=== PATIENT | female | born 1950 | race Caucasian/White ===

== ENCOUNTER 2016-06-18 05:14 | Emergency (ER) | payer OTHER ==
--- NOTE | 2016-06-18 07:09 | ED ORDER SUMMARY ---
..... Patient: MEAGAN SPICER OrderSheet [facility] VisitID: [id number] [place] [address] 65y, F Registration Date/Time: 06/18/2016 ORDER SHEET Weight: 62.5 kg (stated) Allergies: No Known Drug Allergy GENERAL ORDERS: Rapid Influenza Screen (Nasal Pharyngeal) (child care development specialist) Urgent (05:34 06/18/2016 Alf ROBLES) (Ack 5:37 CHagerty ER Circus Performer) (Cancelled: Other5:37 CHagerty ER Circus Performer) Chest 2V Urgent (05:38 06/18/2016 Alf ROBLES) (Ack 5:40 CHagerty ER Circus Performer) (5:54 Isma) Rapid Influenza Screen (Nasal Pharyngeal) (FLAKE DRIER) Urgent (05:38 06/18/2016 Alf ROBLES) (Ack 5:40 CHagerty ER Circus Performer) (6:04 JQuivey R.N.) CBC w Diff Urgent (05:39 06/18/2016 Alf ROBLES) (Ack 5:40 CHagerty ER Circus Performer) (6:04 JQuivey R.N.) CMP Urgent (05:39 06/18/2016 Alf ROBLES) (Ack 5:40 CHaganiket ER Circus Performer) (6:04 JQuivey R.N.) UA-Culture if indicated Urgent (05:39 06/18/2016 Alf ROBLES) (Ack 5:40 CHagerty ER Circus Performer) (6:18 JQuivey R.N.) Amylase Urgent (05:39 06/18/2016 Alf ROBLES) (Ack 5:40 CHagerty ER Circus Performer) (6:04 JQuivey R.N.) Lipase Urgent (05:39 06/18/2016 Alf ROBLES) (Ack 5:40 CHaganiket ER Circus Performer) (6:04 JQuivey R.N.) MEDICATION ORDERS: IV FLUIDS: IV NS : initial bolus 500 mL (1000 mL/hr), then 125 mL/hr for 4h (NOW); Urgent (05:38 06/18/2016 Alf ROBLES) (Ack 5:42 JQuivey R.N.) (6:04 JQuivey R.N.) ORDER SHEET NOTES: [Electronically signed by Lui Muniz R.N. (07:34 06/18/2016)] [Electronically signed by Greg López MD (17:51 06/21/2016)] [Electronically locked/signed by Lui Muniz R.N. (07:34 06/18/2016)]
--- NOTE | 2016-06-18 07:09 | ED NURSING NOTES ---
Clinical Report - Nurses [facility] [address] [place] [address] 06/18/2016 5:15 Patient: MEAGAN SPICER TRIAGE Triage time 05:24. Acuity: LEVEL 3. Chief Complaint: CHILLS, COUGH, NAUSEA and DIARRHEA. 05:34. Alert. SEPSIS SCREEN: Sepsis Screen. Negative (no infection suspected/documented). REINIER COMA SCORE: Reinier Coma Scale: 15- eyes open spontaneously (4); best verbal response- oriented x 4 (5); best motor response- obeys commands (6). --05:34 Lui Muniz R.N. 05:24 06/18/16. BP: 135/76. HR: 68. RR: 17. O2 saturation: 100%. Temp: 98.4 F (oral). Pain level now: 0/10. --05:34 Lui Muniz R.N. Weight: 62.5 kg stated. Height/Length: 65 inches Per Patient. BMI: 23. --05:30 Lui Muniz R.N. Medications Carvedilol Phosphate ER Oral, 2 x daily (pt unsure of dose ). --05:27 Lui Muniz R.N. Atorvastatin Calcium Oral (pt unsure of dose ). --05:28 Lui Muniz R.N. Antibiotic. --05:28 Lui Muniz R.N. Robitussin. --05:32 Lui Muniz R.N. Medication/allergy information source: the patient. --05:34 Lui Muniz R.N. Allergies No Known Drug Allergy. --05:29 Lui Muniz R.N. History Arrived by private vehicle, and accompanied by friend. Onset. (9 days ago). ( Patient reports being seen in both [place] and at the [facility], [place] for the same thing states she has 2 days left of taking the Anti-biotic, had a flu- swab done in [place] (neg) not getting any better). 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 PAST MEDICAL HX: Immunizations: up-to-date. The patient is post-menopausal. SOCIAL HX: Former smoker, end date 2007. Regular alcohol use; consumes two liquor daily. No drug use. No infectious disease exposure. ABUSE ASSESSMENT: No report of abuse. FALL RISK ASSESSMENT: Fall risk assessment completed. No fall risk identified. NUTRITIONAL RISK ASSESSMENT: The nutritional risk assessment revealed no deficiencies. FUNCTIONAL ASSESSMENT: Functional assessment: no impairments noted. LEARNING NEEDS ASSESSMENT: The learning needs assessment revealed no barriers. SKIN INTEGRITY ASSESSMENT: Skin integrity risk assessment completed. No skin integrity risk identified. --05:34 Lui Muniz R.N. PROBLEMS: Heart problem - patient can't remember name . --05:30 Lui Muniz R.N. ADDITIONAL SURGERIES: Cholecystectomy. Lung Surgery. --05:30 Lui Muniz R.N. Interventions ID band on patient. To treatment room. --05:34 Lui Muniz R.N. PHYSICAL ASSESSMENT 05:34. Ambulatory to room. Patient gowned. GENERAL / NEURO / PSYCH: Alert. Oriented X 4. HEENT: No facial asymmetry noted. Mucous membranes are pink. RESPIRATORY: Respirations not labored. SKIN: Skin intact. Skin is warm and dry. Normal skin turgor. --05:34 Lui Muniz R.N. NURSING PROGRESS NOTES 05:34. Head of bed elevated. Two patient identifiers checked. Call light placed in reach. Bed placed in lowest position. Brakes of bed on. Patient ready for evaluation- chart flagged. --05:34 Lui Muniz R.N. 05:46. Patient transported to radiology by wheelchair with tech. --05:46 Lui Muniz R.N. 05:51. Patient returned from radiology by wheelchair with tech. --05:51 Lui Muniz R.N. flu swab collected, labeled and sent to lab. pt tolerated well. --05:55 Heather Najera R.N. 05:55 06/18/2016 Site #1 started via IV in the right antecubital space with an 20g angiocath, with aseptic technique and good blood return; one attempt. Blood drawn: rainbow set. Labeled in the presence of the patient and sent to the lab. --06:03 Lui Muniz R.N. 05:58 06/18/2016 Started bag #1 1000 mL IV Fluids IV NS (Saline); at 1000 mL/hr over 30 minute(s) via site #1 via IV pump. IV patency established. IV site checked: no pain, redness, or swelling. IV flushed thoroughly pre- and post-medication administration. --06:04 Lui Muniz R.N. 06:07 Patient assisted to restroom to provide urine sample. --06:07 Lui Muniz R.N. 06:10. Patient ID band checked for patient name and birthdate: patient confirmed. Clean catch urine collected with return of yellow-colored garcia-colored clear urine; sample sent to lab for urinalysis. Specimen labeled in the presence of the patient. --06:10 Lui Muniz R.N. 07:32. The patient is calm and resting quietly. RESPIRATORY: No respiratory distress. SKIN: Skin is warm and dry. Skin color within normal limits. --07:34 Lui Muniz R.N. DISPOSITION / DISCHARGE 07:26 06/18/2016 IV Fluids IV NS Discontinued: bag #1 STOPPED upon discharge. Total amount infused: 600 mL. IV patency established. IV site checked: no pain, redness, or swelling. IV flushed thoroughly. --07:32 Lui Muniz R.N. 07:27 06/18/2016 Site #1 removed upon discharge. Catheter intact. Bandaid applied. --07:32 Lui Muniz R.N. Departure time: 07:34. Condition at departure: stable. No learning barriers present. Discharge instructions provided and reviewed with the patient and family. Patient and family verbalized understanding. Written instructions provided in Brazilian. ( Patient given stool sample collection kit to bring back to lab). The patient was discharged home and accompanied by family. She left the Emergency Department ambulatory and via private vehicle. Family member driving. FALL RISK ASSESSMENT: Fall risk assessment completed. No fall risk identified. --07:34 Lui Muniz R.N. 07:26 06/18/16. BP: 124/89. HR: 66. RR: 17. O2 saturation: 98%. --07:34 Lui Muniz R.N. Locked/Released at 06/18/2016 7:34 by Lui Muniz R.N.
--- NOTE | 2016-06-18 07:09 | ED CLINICAL REPORT ---
Clinical Report - Physicians/Mid Levels [facility] [address] [place] [address] 06/18/2016 5:15 Patient: MEAGAN SPICER Time Seen: 05:33. Arrived- By private vehicle. Historian- patient. HISTORY OF PRESENT ILLNESS Chief Complaint: COUGH, CHILLS and "FLU". This started about 9 days ago and is still present. It was gradual in onset and has been constant and waxing/waning. The patient has had a cough, chills and muscle aches. (reports being seen in both [place] and at the [facility] for the same thing states she has 2 days left of taking the Anti-biotic, had a flu- swab done in [place] (neg) not getting any better). Recent medical care: The patient was seen recently in a clinic. REVIEW OF SYSTEMS The patient has had fatigue and nausea and experienced sweats. No calf pain, chest pain, pedal edema, palpitations or urinary problems. She has had mild diarrhea. This has occurred several times. No bloody or blood-tinged diarrhea. All systems otherwise negative, except as recorded above. PAST HISTORY Problems: Heart problem - patient can't remember name . Additional Surgeries: Cholecystectomy. Lung Surgery. Medications: Robitussin. Antibiotic. Atorvastatin Calcium Oral (pt unsure of dose ). Carvedilol Phosphate ER Oral, 2 x daily (pt unsure of dose ). Allergies: No Known Drug Allergy. SOCIAL HISTORY Former smoker, end date 2007. Regular alcohol use. FAMILY HISTORY Denies family medical history. ADDITIONAL NOTES The nursing notes have been reviewed. PHYSICAL EXAM Vital Signs: 06/18/2016 05:24 BP: 135/76. HR: 68. RR: 17. O2 saturation: 100%. Temp: 98.4 F. Pain level now: 0/10. Have been reviewed. Appearance: Alert. Eyes: Pupils equal, round and reactive to light. ENT: Pharynx normal. Neck: Normal inspection. Neck supple. CVS: Normal heart rate and rhythm. Heart sounds normal. Respiratory: No respiratory distress. Breath sounds normal. Abdomen: Soft. Abnormal bowel sounds: hyperactive. No organomegaly. Back: Normal inspection. Skin: Skin warm and dry. Normal skin color. Normal skin turgor. Extremities: Extremities exhibit normal ROM. No calf tenderness. No lower extremity edema. LABS, X-RAYS, AND EKG Chest X-ray: (Small right middle lobe infiltrate. Left lung is clear. Cardiovascular structures are normal. Bony thorax is unremarkable.). The X-rays were interpreted by the radiologist and contemporaneously by me. Laboratory Tests: UA-Culture if indicated: (TUCKER: 06/18/2016 06:10) ( MsgRcvd 06/18/2016 06:18) Final results Test Result Flag Units (Reference) URINE COLOR YELLOW URINE APPEARANCE CLEAR URINE GLUCOSE NEGATIVE (NEGATIVE) URINE BILIRUBIN NEGATIVE (NEGATIVE) URINE KETONE TRACE (NEGATIVE) URINE SPECIFIC GRAVITY 1.015 (1.010-1.030) URINE PH 7.0 (5.0-8.0) URINE PROTEIN TRACE (NEGATIVE) URINE UROBILINOGEN 0.2 EU/dL (0.2-1.0) URINE NITRITE NEGATIVE (NEGATIVE) URINE BLOOD NEGATIVE (NEGATIVE) URINE LEUK ESTERASE TRACE (NEGATIVE) URINE RBC 0-1 rbc/hpf (0-1) URINE WBC 1-3 wbc/hpf (0-1) URINE EPITHELIAL CELLS 0-1 EPI/hpf (0-5) URINE BACTERIA FEW (1+) (NONE SEEN) URINE COMMENT CULTURE INDICATED URINE CULTURES ARE SET-UP BASED ON THE FOLLOWING CRITERIA:POSITIVE NITRITEPOSITIVE LEUKOCYTE ESTERASEGREATER THAN 10 WHITE BLOOD CELLSMODERATE (2+) OR GREATER BACTERIA CBC w Diff: (TUCKER: 06/18/2016 05:55) ( MsgRcvd 06/18/2016 06:06) Final results Test Result Flag Units (Reference) WHITE BLOOD COUNT 4.7 K/uL (4.5-11.5) RED BLOOD COUNT 4.50 M/uL (4.00-5.20) HEMOGLOBIN 14.3 gm/dL (12.0-16.0) HEMATOCRIT 43.6 % (36.0-46.0) MEAN CELL VOLUME 97 fL (80-100) MEAN CORPUSCULAR HGB 32 pg (26-34) MEAN CORPUSCULAR HGB CONC 33 g/dL (31-37) RED CELL DISTRIBUTION WIDTH 12.7 % (11.6-14.8) PLATELET COUNT 276 K/uL (150-400) NEUTROPHIL % 55.4 % (50-75) LYMPH % 28.6 % (25-40) MONO % 15.5 H % (3-14) EOSINOPHIL % 0.3 % (0-4) BASOPHIL % 0.2 % (0-2) CMP: (TUCKER: 06/18/2016 05:55) ( MsgRcvd 06/18/2016 06:19) Final results Test Result Flag Units (Reference) GLUCOSE 108 mg/dL (70-110) BUN 13 mg/dL (7-18) CREATININE 0.8 mg/dL (0.6-1.3) Estimated GFR >60 mL/min Estimated GFR- >60 mL/min Note: Persistent reduction over 3 months in eGFR<60 mL/min/1.73 m2 defines CKD. Patients with eGFR values>=60 mL/min/1.73 m2 may also have CKD if evidence ofpersistent proteinuria. Additional information may be foundat www.kidney.org. SODIUM 139 mmol/L (136-145) POTASSIUM 4.0 mmol/L (3.5-5.1) CHLORIDE 101 mmol/L (98-107) CARBON DIOXIDE 28 mmol/L (21-32) CALCIUM 9.3 mg/dL (8.5-10.1) TOTAL PROTEIN 7.3 g/dL (6.4-8.2) ALBUMIN 3.8 g/dL (3.3-5.0) BILIRUBIN, TOTAL 0.9 mg/dL (0.0-1.0) ALKALINE PHOSPHATASE 86 U/L (46-116) AST (SGOT) 39 H U/L (15-37) ALT (SGPT) 49 U/L (12-78) LIPASE 418 H U/L (73-393) AMYLASE 58 U/L (25-115) Rapid Influenza Screen: (TUCKER: 06/18/2016 05:50) ( [facility] 06/18/2016 06:07) Final results SPECIMEN DESCRIPTION: FINANCIAL AIDS OFFICER Test Result Flag Units (Reference) RAPID INFLUENZA SCREEN CALLED TO: NA -- DATE: 06/18/16 INFLUENZA A: NEGATIVE SCREEN FOR INFLUENZA A INFLUENZA B: NEGATIVE SCREEN FOR INFLUENZA B . PROGRESS AND PROCEDURES Course of Care: The patient was recently treated with a course of antibiotics. we discussed potential for a viral versus a bacterial infection. We agreed that we would not use any antibiotics for therapy at this point. She was instructed to returnif her symptoms worsen or if any new symptoms develop. Patient/family counseled. Old medical records ordered. Old records unavailable. Disposition: Discharged. Condition: stable. CLINICAL IMPRESSION Diarrhea Viral syndrome INSTRUCTIONS Drink plenty of fluids. (Collect stool samples and return them to the lab as discussed. Follow up the results with your doctor.). Warnings: Further evaluation is necessary. GENERAL WARNINGS: Return or contact your physician immediately if your condition worsens or changes unexpectedly, if not improving as expected, or if other problems arise. Your Current Medications: CONTINUE TAKING THE FOLLOWING MEDICATIONS: Antibiotic*. Atorvastatin Calcium Oral : pt unsure of dose. Carvedilol Phosphate ER Oral : 2 x daily, pt unsure of dose. Robitussin*. Follow-up: Follow up with your doctor OSMAN DANIELS tomorrow. Call for an appointment. Understanding of the discharge instructions verbalized by patient. (Electronically signed by Greg López MD 06/21/2016 17:51) Addenda for MEAGAN SPICER VisitID: [id number] Date: 06/18/2016 06/21/2016 17:50 i called the patieent this evening to see how sslyn was feeling she says she has a persistent mild cough butgenerally is feeling mmuch better she has been back to work. She denies any fevers chills or sweatsand her nausea has resolved she is following up with her primary care doc in 3 days. (Electronically signed by Greg López MD - 06/21/2016 17:50)
--- NOTE | 2016-06-18 07:09 | ED ORDER SUMMARY ---
..... Patient: MEAGAN SPICER OrderSheet [facility] VisitID: [id number] [place] [address] 65y, F Registration Date/Time: 06/18/2016 ORDER SHEET Weight: 62.5 kg (stated) Allergies: No Known Drug Allergy GENERAL ORDERS: Rapid Influenza Screen (Nasal Pharyngeal) (global security architect) Urgent (05:34 06/18/2016 Alf ROBLES) (Ack 5:37 CHagerty ER Media/Instructional Designer) (Cancelled: Other5:37 CHagerty ER Media/Instructional Designer) Chest 2V Urgent (05:38 06/18/2016 Alf ROBLES) (Ack 5:40 CHagerty ER Media/Instructional Designer) (5:54 Isma) Rapid Influenza Screen (Nasal Pharyngeal) (AUTOMOBILE UPHOLSTERER) Urgent (05:38 06/18/2016 Alf ROBLES) (Ack 5:40 CHagerty ER Media/Instructional Designer) (6:04 JQuivey R.N.) CBC w Diff Urgent (05:39 06/18/2016 Alf ROBLES) (Ack 5:40 CHagerty ER Media/Instructional Designer) (6:04 JQuivey R.N.) CMP Urgent (05:39 06/18/2016 Alf ROBLES) (Ack 5:40 CHaganiket ER Media/Instructional Designer) (6:04 JQuivey R.N.) UA-Culture if indicated Urgent (05:39 06/18/2016 Alf ROBLES) (Ack 5:40 CHagerty ER Media/Instructional Designer) (6:18 JQuivey R.N.) Amylase Urgent (05:39 06/18/2016 Alf ROBLES) (Ack 5:40 CHagerty ER Media/Instructional Designer) (6:04 JQuivey R.N.) Lipase Urgent (05:39 06/18/2016 Alf ROBLES) (Ack 5:40 CHaganiket ER Media/Instructional Designer) (6:04 JQuivey R.N.) MEDICATION ORDERS: IV FLUIDS: IV NS : initial bolus 500 mL (1000 mL/hr), then 125 mL/hr for 4h (NOW); Urgent (05:38 06/18/2016 Alf ROBLES) (Ack 5:42 JQuivey R.N.) (6:04 JQuivey R.N.) ORDER SHEET NOTES: [Electronically signed by Lui Muniz R.N. (07:34 06/18/2016)] [Electronically signed by Greg López MD (17:51 06/21/2016)] [Electronically locked/signed by Lui Muniz R.N. (07:34 06/18/2016)]
--- NOTE | 2016-06-18 07:09 | ED NURSING NOTES ---
Clinical Report - Nurses [facility] [address] [place] [address] 06/18/2016 5:15 Patient: MEAGAN SPICER TRIAGE Triage time 05:24. Acuity: LEVEL 3. Chief Complaint: CHILLS, COUGH, NAUSEA and DIARRHEA. 05:34. Alert. SEPSIS SCREEN: Sepsis Screen. Negative (no infection suspected/documented). REINIER COMA SCORE: Reinier Coma Scale: 15- eyes open spontaneously (4); best verbal response- oriented x 4 (5); best motor response- obeys commands (6). --05:34 Lui Muniz R.N. 05:24 06/18/16. BP: 135/76. HR: 68. RR: 17. O2 saturation: 100%. Temp: 98.4 F (oral). Pain level now: 0/10. --05:34 Lui Muniz R.N. Weight: 62.5 kg stated. Height/Length: 65 inches Per Patient. BMI: 23. --05:30 Lui Muniz R.N. Medications Carvedilol Phosphate ER Oral, 2 x daily (pt unsure of dose ). --05:27 Lui Muniz R.N. Atorvastatin Calcium Oral (pt unsure of dose ). --05:28 Lui Muniz R.N. Antibiotic. --05:28 Lui Muniz R.N. Robitussin. --05:32 Lui Muniz R.N. Medication/allergy information source: the patient. --05:34 Lui Muniz R.N. Allergies No Known Drug Allergy. --05:29 Lui Muniz R.N. History Arrived by private vehicle, and accompanied by friend. Onset. (9 days ago). ( Patient reports being seen in both [place] and at the [facility] for the same thing states she has 2 days left of taking the Anti-biotic, had a flu- swab done in [place] (neg) not getting any better). 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 PAST MEDICAL HX: Immunizations: up-to-date. The patient is post-menopausal. SOCIAL HX: Former smoker, end date 2007. Regular alcohol use; consumes two liquor daily. No drug use. No infectious disease exposure. ABUSE ASSESSMENT: No report of abuse. FALL RISK ASSESSMENT: Fall risk assessment completed. No fall risk identified. NUTRITIONAL RISK ASSESSMENT: The nutritional risk assessment revealed no deficiencies. FUNCTIONAL ASSESSMENT: Functional assessment: no impairments noted. LEARNING NEEDS ASSESSMENT: The learning needs assessment revealed no barriers. SKIN INTEGRITY ASSESSMENT: Skin integrity risk assessment completed. No skin integrity risk identified. --05:34 Lui Muniz R.N. PROBLEMS: Heart problem - patient can't remember name . --05:30 Lui Muniz R.N. ADDITIONAL SURGERIES: Cholecystectomy. Lung Surgery. --05:30 Lui Muniz R.N. Interventions ID band on patient. To treatment room. --05:34 Lui Muniz R.N. PHYSICAL ASSESSMENT 05:34. Ambulatory to room. Patient gowned. GENERAL / NEURO / PSYCH: Alert. Oriented X 4. HEENT: No facial asymmetry noted. Mucous membranes are pink. RESPIRATORY: Respirations not labored. SKIN: Skin intact. Skin is warm and dry. Normal skin turgor. --05:34 Lui Muniz R.N. NURSING PROGRESS NOTES 05:34. Head of bed elevated. Two patient identifiers checked. Call light placed in reach. Bed placed in lowest position. Brakes of bed on. Patient ready for evaluation- chart flagged. --05:34 Lui Muniz R.N. 05:46. Patient transported to radiology by wheelchair with tech. --05:46 Lui Muniz R.N. 05:51. Patient returned from radiology by wheelchair with tech. --05:51 Lui Muniz R.N. flu swab collected, labeled and sent to lab. pt tolerated well. --05:55 Heather Najera R.N. 05:55 06/18/2016 Site #1 started via IV in the right antecubital space with an 20g angiocath, with aseptic technique and good blood return; one attempt. Blood drawn: rainbow set. Labeled in the presence of the patient and sent to the lab. --06:03 Lui Muniz R.N. 05:58 06/18/2016 Started bag #1 1000 mL IV Fluids IV NS (Saline); at 1000 mL/hr over 30 minute(s) via site #1 via IV pump. IV patency established. IV site checked: no pain, redness, or swelling. IV flushed thoroughly pre- and post-medication administration. --06:04 Lui Muniz R.N. 06:07 Patient assisted to restroom to provide urine sample. --06:07 Lui Muniz R.N. 06:10. Patient ID band checked for patient name and birthdate: patient confirmed. Clean catch urine collected with return of yellow-colored garcia-colored clear urine; sample sent to lab for urinalysis. Specimen labeled in the presence of the patient. --06:10 Lui Muniz R.N. 07:32. The patient is calm and resting quietly. RESPIRATORY: No respiratory distress. SKIN: Skin is warm and dry. Skin color within normal limits. --07:34 Lui Muniz R.N. DISPOSITION / DISCHARGE 07:26 06/18/2016 IV Fluids IV NS Discontinued: bag #1 STOPPED upon discharge. Total amount infused: 600 mL. IV patency established. IV site checked: no pain, redness, or swelling. IV flushed thoroughly. --07:32 Lui Muniz R.N. 07:27 06/18/2016 Site #1 removed upon discharge. Catheter intact. Bandaid applied. --07:32 Lui Muniz R.N. Departure time: 07:34. Condition at departure: stable. No learning barriers present. Discharge instructions provided and reviewed with the patient and family. Patient and family verbalized understanding. Written instructions provided in Cape Verdean. ( Patient given stool sample collection kit to bring back to lab). The patient was discharged home and accompanied by family. She left the Emergency Department ambulatory and via private vehicle. Family member driving. FALL RISK ASSESSMENT: Fall risk assessment completed. No fall risk identified. --07:34 Lui Muniz R.N. 07:26 06/18/16. BP: 124/89. HR: 66. RR: 17. O2 saturation: 98%. --07:34 Lui Muniz R.N. Locked/Released at 06/18/2016 7:34 by Lui Muniz R.N.
--- NOTE | 2016-06-18 07:37 | DIAGNOSTIC IMAGING REPORT ---
PROCEDURE: XR CHEST 2 VIEW INDICATION: Cough x 9 days, initial encounter TECHNIQUE: PA and lateral view. COMPARISON: None. FINDINGS: Small right middle lobe infiltrate. Left lung is clear. Cardiovascular structures are normal. Bony thorax is unremarkable. IMPRESSION: 1. Right middle lobe pneumonia.
--- NOTE | 2016-06-21 17:51 | ED MAR SUMMARY ---
..... Medication Administration Record [facility] [address] [place] [address] Patient: MEAGAN SPICER Visit ID: [id number] 65y, F Weight: 62.5 kg Height/Length: 65 in BMI: 23 ALLERGIES: No Known Drug Allergy Start 05:58 06/18/2016 Lui Muniz RJameN., Stop 07:26 06/18/2016 Lui Muniz RJameN. Medication Administered: IV NS (SALINE), Dose: IV Fluids over 30 minute(s), Rate: 1000 mL/hr, Dispensed: 1000 mL bag, Site: #1 right AC. Medication Ordered: IV NS : initial bolus 500 mL (1000 mL/hr), then 125 mL/hr for 4h (NOW); Urgent.
--- NOTE | 2016-06-21 17:51 | ED MED RECONCILIATION SUMMARY ---
Patient: MEAGAN SPICER Medication Reconciliation Report [facility] VisitID: [id number] [place] [address] 65y, F Registration Date/Time: 06/18/2016 Weight: 62.5 kg Height/Length: 65 in. BMI: 23.0 ALLERGIES: No Known Drug Allergy The patient's Home Medications are listed below: CONTINUE TAKING THE FOLLOWING MEDICATIONS: Antibiotic Atorvastatin Calcium Oral, pt unsure of dose Carvedilol Phosphate ER Oral, 2 x daily, pt unsure of dose Robitussin The source(s) of the original Home Medication information: patient The following Medications were given to the patient in the Emergency Department: IV NS IV Fluids bolus 0, then 1000 mL/hr, administered: 06/18/2016 5:58:00 AM The following Medications were prescribed to the patient: None.
--- NOTE | 2016-06-21 17:51 | ED MAR SUMMARY ---
..... Medication Administration Record [facility] [address] [place] [address] Patient: MEAGAN SPICER Visit ID: [id number] 65y, F Weight: 62.5 kg Height/Length: 65 in BMI: 23 ALLERGIES: No Known Drug Allergy Start 05:58 06/18/2016 Lui Muniz RJameN., Stop 07:26 06/18/2016 uLi Muniz RJameN. Medication Administered: IV NS (SALINE), Dose: IV Fluids over 30 minute(s), Rate: 1000 mL/hr, Dispensed: 1000 mL bag, Site: #1 right AC. Medication Ordered: IV NS : initial bolus 500 mL (1000 mL/hr), then 125 mL/hr for 4h (NOW); Urgent.
--- NOTE | 2016-06-21 17:51 | ED MED RECONCILIATION SUMMARY ---
Patient: MEAGAN SPICER Medication Reconciliation Report [facility] VisitID: [id number] [address] [place] [address] 65y, F Registration Date/Time: 06/18/2016 Weight: 62.5 kg Height/Length: 65 in. BMI: 23.0 ALLERGIES: No Known Drug Allergy The patient's Home Medications are listed below: CONTINUE TAKING THE FOLLOWING MEDICATIONS: Antibiotic Atorvastatin Calcium Oral, pt unsure of dose Carvedilol Phosphate ER Oral, 2 x daily, pt unsure of dose Robitussin The source(s) of the original Home Medication information: patient The following Medications were given to the patient in the Emergency Department: IV NS IV Fluids bolus 0, then 1000 mL/hr, administered: 06/18/2016 5:58:00 AM The following Medications were prescribed to the patient: None.
--- NOTE | 2016-06-21 17:51 | ED DISCHARGE INSTRUCTIONS ---
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 (Collect stool samples and return them to the lab as discussed. Follow up the results with your doctor.). Warnings: Further evaluation is necessary. GENERAL WARNINGS: Return or contact your physician immediately if your condition worsens or changes unexpectedly, if not improving as expected, or if other problems arise. Your Current Medications: CONTINUE TAKING THE FOLLOWING MEDICATIONS: Antibiotic*. Atorvastatin Calcium Oral : pt unsure of dose. Carvedilol Phosphate ER Oral : 2 x daily, pt unsure of dose. Robitussin*. Follow-up: Follow up with your doctor OSMAN DANIELS tomorrow. Call for an appointment. Understanding of the discharge instructions verbalized by patient. ADDITIONAL INFORMATION Viral Syndrome (Adult) A viral illness may cause a number of symptoms. The symptoms depend on the part of the body that the virus affects. If it settles in the nose, throat, and lungs, it may cause cough, sore throat, congestion, and sometimes headache. If it settles in the stomach and intestinal tract, it may cause vomiting and diarrhea. Sometimes it causes vague symptoms like "aching all over," feeling tired, loss of appetite, or fever. A viral illness usually lasts1 to 2 weeks, but sometimes it lasts longer. In some cases, a more serious infection can look like a viral syndrome in the first few days of the illness. You may need anotherexam and additional teststo know the difference.Watch for the warning signs listed below. Home care Follow these guidelines for taking care of yourself at home: If symptoms are severe, rest at home for the first 2 to 3 days. Stay away from cigarette smoke - both your smoke and the smoke from others. You may useacetaminophen or ibuprofen for fever, muscle aching, and headache, unless another medicine was prescribed for this.If you have chronic liver or kidney disease or ever had a stomach ulcer or GI bleeding, talk with your doctor before using these medicinesNo one who is younger than 18 and ill with a fever should take aspirin. It may cause severe liver damage. Your appetite may be poor, so a light diet is fine. Avoid dehydration by drinking 8 to 12 8-ounce glasses of fluids each day. This may include water; orange juice; lemonade; apple, grape, and cranberry juice; clear fruit drinks; electrolyte replacement and sports drinks; and decaffeinated teas and coffee. If you have been diagnosed with a kidney disease, ask your doctor how much and what types of fluids you should drink to prevent dehydration. If you have kidney disease, drinking too much fluid can cause it build up in the your body and be dangerous to your health. Niyk-ztf-botgfzf remedies won't shorten the length of the illness but may be helpful forcough, sore throat; and nasal and sinus congestion. Don't use decongestants if you have high blood pressure. Follow-up care Follow up with your health care provider if you do not improve over the next week. When to seek medical care Get prompt medical attention if any of these occur: Cough with lots of colored sputum (mucus) or blood in your sputum Chest pain, shortness of breath, wheezing, or difficulty breathing Severe headache; face, neck, or ear pain Severe, constant pain in the lower right side of your belly (abdominal) Continued vomiting (cant keep liquids down) Frequent diarrhea (more than 5 times a day); blood (red or black color) or mucus in diarrhea Feeling weak, dizzy, or like you are going to faint Extreme thirst Fever of 100.4 F (38 C) oral or higher, not better with fever medication Convulsion Diarrhea, Uncertain Cause (Adult, Report Pending) Diarrhea has several possible causes. Commonstomach fluis caused by a virus. Food poisoning, bacteria or parasites are other causes for diarrhea. Only diarrhea caused by bacteria or parasites requires treatment with an antibiotic. Diarrhea from a virus or food poisoning improves with simple home treatment. A stool sample is needed to make the diagnosis of an infection with bacteria or parasites. Up to three stool specimens may be required to diagnose This may take up to two days to get the result. It may be necessary to wait until the stool test is complete to make the diagnosis and select the best antibiotic to prescribe. Home Care: If symptoms are severe, rest at home for the next 24 hours or until you are feeling better. You may use acetaminophen (Tylenol) or ibuprofen (Motrin, Advil) to control fever, unless another medicine was prescribed. [NOTE: If you have chronic liver or kidney disease or ever had a stomach ulcer or GI bleeding, talk with your doctor before using these medicines.] (Aspirin should never be used in anyone under 18 years of age who is ill with a fever. It may cause severe liver damage.) Avoid tobacco, caffeine and alcohol, which may worsen your symptoms. If anti-diarrhea medicine was prescribed, take this only as directed. Sometimes anti-diarrhea medicine can make your condition worse if the cause is an infectious diarrhea. Therefore, anti-diarrhea medicine should not be taken for this condition unless advised by your doctor. During The First 12-24 Hours follow the diet below: BEVERAGES: Sport drinks like Gatorade, soft drinks without caffeine; chapincito kari, mineral water (plain or flavored), decaffeinated tea and coffee. SOUPS: Clear broth, consomm and bouillon DESSERTS: Plain gelatin (Jell-O), popsicles and fruit juice bars. During The Next 24 Hours you may add the following to the above: Hot cereal, plain toast, bread, rolls, crackers Plain noodles, rice, mashed potatoes, chicken noodle or rice soup Unsweetened canned fruit (avoid pineapple), bananas Limit fat intake to less than 15 grams per day by avoiding margarine, butter, oils, mayonnaise, sauces, gravies, fried foods, peanut butter, meat, poultry and fish. Limit fiber; avoid raw or cooked vegetables, fresh fruits (except bananas) and bran cereals. Limit caffeine and chocolate. No spices or seasonings except salt. During The Next 24 Hours Gradually resume a normal diet, as you feel better and your symptoms lessen. Follow Up with your doctor or as advised if you are not improving over the next two days. If you were asked to bring a specimen from home, bring the sample on the day of collection. You may call in 2 days (or as directed) for the results. Get Prompt Medical Attention if any of the following occur: Increasing abdominal pain or constant lower right abdominal pain Continued vomiting (unable to keep liquids down) Frequent diarrhea (more than 5 times a day) Blood in vomit or stool (black or red color) Reduced oral intake Dark urine, reduced urine output Weakness, dizziness, fainting Drowsiness, confusion, stiff neck or seizure Fever of 100.4F (38C) oral or higher, not better with fever medication New rash You have been given the following additional information: Viral Syndrome (Adult) Diarrhea, Unk Cause (Adult) Report Pendg (Electronically signed by Greg López MD 06/21/2016 17:51)
== END 2016-06-18 07:26 | disposition home or self-care (01) ==
LOC: ED SRH 05:14
DX: B34.9 Viral infection, unspecified (principal); Z87.891 Personal history of nicotine dependence
CPT/HCPCS: 90004; 90100; 90469; 91400; 92235; 92530; 95059